=== PATIENT | female | born 1985 | race Caucasian/White ===

== ENCOUNTER 2018-03-06 22:30 | Emergency (ER) | payer SELFPAY ==
[2018-03-06 23:05] LABS: Urine Blood NEGATIVE (NEG); Urine Glucose NEGATIVE (NEG); Urine Protein NEGATIVE (NEG)
[2018-03-06 23:54] LABS: Absolute Lymphocytes (CBC) 2.2 K/uL (0.7-4.9); Absolute Monocytes 0.6 K/uL (0.1-1.3); Absolute Neutrophil 6.6 K/uL (1.8-8.0); Basophils % 0.7 % (0-1.3); Eosinophils % 5.7 % (0-4.4); Hematocrit 40.6 % (36.0-45.0); MCH 28.2 pg (27.0-35.0); MCV 82.9 fL (80-100); MPV 8.1 fL (7.6-11.3); Monocytes % 6.1 % (3.3-12.3)
[2018-03-06 23:58] LABS: BUN Blood Urea Nitrogen 13 mg/dL (7-18); Bicarbonate 30 mmol/L (21-32); Glucose Level 96 mg/dL (74-106); Potassium 3.8 mmol/L (3.5-5.1); Sodium Level 142 mmol/L (136-145)
[2018-03-07] MEDS ORDERED: KETOROLAC 30 MG/ML INJ ONE (00:03)
--- NOTE | 2018-03-07 01:12 | ER ---
Nurse's Notes [facility] Name: Alma Rosa Villarreal Age: 32 yrs Sex: Female : 1985 Arrival Date: 03/06/2018 Time: 22:31 Bed 8 Private MD: Diagnosis: Abdominal and pelvic pain Presentation: 03/06 22:32 Presenting complaint: EMS states: Patient complaining of lower abdominal pain that woke ea her out of her sleep thirty minutes ago. Patient reported she took a test last week and it was positive. Transition of care: patient was not received from another setting of care. Onset of symptoms was March 06, 2018. Risk Assessment: Do you want to hurt yourself or someone else? Patient reports no desire to harm self or others. Initial Sepsis Screen: Does the patient meet any 2 criteria? No. Patient's initial sepsis screen is negative. Does the patient have a suspected source of infection? No. Patient's initial sepsis screen is negative. Care prior to arrival: None. 22:32 Method Of Arrival: EMS: [facility] ea 22:32 Acuity: YAZ 3 ea Triage Assessment: 22:37 General: Appears uncomfortable, Behavior is calm, cooperative, appropriate for age. ea General: pt reports positive test about a week ago. Pain: Complains of pain in suprapubic area, right lower quadrant and left lower quadrant Pain currently is 8 out of 10 on a pain scale. Quality of pain is described as crampy, Pain began 30 min ago. Is intermittent. EENT: No signs and/or symptoms were reported regarding the EENT system. Neuro: Level of Consciousness is awake, alert, obeys commands, Oriented to person, place, time, situation. Cardiovascular: Patient's skin is warm and dry. Respiratory: Airway is patent Respiratory effort is even, unlabored, Respiratory pattern is regular, symmetrical. GI: Abdomen is non-distended, Bowel sounds present X 4 quads. Reports lower abdominal pain. : Reports cramping, right and left lower quadrant. Derm: Skin is pink, warm \T\ dry. Musculoskeletal: Circulation, motion, and sensation intact. PROGRAM DIR: 22:32 5, Full Term 3, Premature 0, 1, Living 3, LMP 01/2018 ea Historical: - Allergies: 22:37 Codeine; ea 22:37 Morphine; ea - Home Meds: 22:37 None [Active]; ea - PMHx: 22:37 Ovarian cyst; ea - Immunization history:: Adult Immunizations up to date. - Social history:: Smoking status: Patient uses tobacco products, smokes one-half pack cigarettes per day. - Ebola Screening: : No symptoms or risks identified at this time. Screenin:43 Abuse screen: Denies threats or abuse. Nutritional screening: No deficits noted. ea Tuberculosis screening: No symptoms or risk factors identified. Fall Risk None identified. Assessment: 22:44 Reassessment: see triage assessment. ea 23:50 Reassessment: Patient and/or family updated on plan of care and expected duration. Pain ea level reassessed. Patient is alert, oriented x 3, equal unlabored respirations, skin warm/dry/pink. 03/07 00:20 Reassessment: Patient and/or family updated on plan of care and expected duration. Pain ea level reassessed. Patient is alert, oriented x 3, equal unlabored respirations, skin warm/dry/pink. pt taken to CT. 01:00 Reassessment: Patient and/or family updated on plan of care and expected duration. Pain ea level reassessed. Patient is alert, oriented x 3, equal unlabored respirations, skin warm/dry/pink. 01:45 Reassessment: Patient and/or family updated on plan of care and expected duration. Pain ea level reassessed. Patient is alert, oriented x 3, equal unlabored respirations, skin warm/dry/pink. Discharge instruction given to patient, verbalized the understanding of instruction. Patient denies pain at this time. Patient states feeling better. Patient states symptoms have improved. Vital Signs: 03/06 22:32 BP 124 / 81; Pulse 68; Resp 18; Temp 97.7; Pulse Ox 98% on R/A; Weight 90.72 kg; Height ea 5 ft. 7 in. (170.18 cm); Pain 8/10; 23:45 BP 105 / 84; Pulse 68; Resp 18; Pulse Ox 99% on R/A; ea 03/07 00:42 BP 118 / 73; Pulse 60; Resp 18; Pulse Ox 99% on R/A; ea 01:06 BP 113 / 71; Pulse 63; Resp 18; Pulse Ox 97% on R/A; ea 09/06 22:32 Body Mass Index 31.32 (90.72 kg, 170.18 cm) ea ED Course: 03/06 22:31 Patient arrived in ED. ds1 22:32 Margaret Del Cid, RN is Primary Nurse. ea 22:32 Patient has correct armband on for positive identification. Placed in gown. Bed in low ea position. Call light in reach. 22:32 Arm band placed on right wrist. Patient placed in an exam room, on a stretcher, on ea pulse oximetry. 22:34 Triage completed. ea 22:36 Davon Alvares PA is PHCP. jr8 22:36 Aayush Duff MD is Attending Physician. jr8 23:30 Inserted saline lock: 20 gauge in right antecubital area, using aseptic technique. ea Blood collected. 03/07 00:07 Patient moved to [place] via wheelchair. kw1 00:19 CT Abd/Pelvis - W/Contrast In Process Unspecified. EDMS 00:21 CT completed. Patient tolerated procedure well. Patient moved back from AK. kw1 01:45 No provider procedures requiring assistance completed. IV discontinued, intact, ea bleeding controlled, No redness/swelling at site. Pressure dressing applied. Administered Medications: 00:00 Drug: TORadol 30 mg Route: IVP; Site: right antecubital; ea Outcome: 01:12 Discharge ordered by . jr8 01:45 Discharged to home via wheelchair, with family. ea 01:45 Condition: improved 01:45 Discharge instructions given to patient, Instructed on discharge instructions, follow up and referral plans. medication usage, Demonstrated understanding of instructions, follow-up care, medications, Prescriptions given X 2. 01:56 Patient left the ED. ea Signatures: Dispatcher [employer] EDOK Ellen Staples ds1 Davon Alvares PA PA jr8 Margaret Del Cid, RN RN Carey Lau kw1
--- NOTE | 2018-03-07 01:12 | EDPHYS ---
Physician Documentation [facility] Name: Alma Rosa Villarreal Age: 32 yrs Sex: Female : 1985 Arrival Date: 03/06/2018 Time: 22:31 Bed 8 Private MD: ED Physician Aayush Duff HPI: 03/06 23:33 This 32 yrs old Female presents to ER via EMS with complaints of Abdominal jr8 Pain. 23:33 The patient presents with abdominal pain in the lower abdomen. Onset: The jr8 symptoms/episode began/occurred acutely, today. The symptoms do not radiate. Associated signs and symptoms: Pertinent positives: nausea. The symptoms are described as sharp. Modifying factors: The symptoms are alleviated by nothing, the symptoms are aggravated by movement. Severity of pain: At its worst the pain was moderate in the emergency department the pain is unchanged. The patient has not experienced similar symptoms in the past. The patient has not recently seen a physician. EDUCATIONAL TECHNOLOGY COORDINATOR: 22:32 5, Full Term 3, Premature 0, 1, Living 3, LMP 01/2018 ea Historical: - Allergies: 22:37 Codeine; ea 22:37 Morphine; ea - Home Meds: 22:37 None [Active]; ea - PMHx: 22:37 Ovarian cyst; ea - Immunization history:: Adult Immunizations up to date. - Social history:: Smoking status: Patient uses tobacco products, smokes one-half pack cigarettes per day. - Ebola Screening: : No symptoms or risks identified at this time. ROS: 23:33 Eyes: Negative for injury, pain, redness, and discharge, ENT: Negative for injury, jr8 pain, and discharge, Neck: Negative for injury, pain, and swelling, Cardiovascular: Negative for chest pain, palpitations, and edema, Respiratory: Negative for shortness of breath, cough, wheezing, and pleuritic chest pain, Back: Negative for injury and pain, MS/Extremity: Negative for injury and deformity, Skin: Negative for injury, rash, and discoloration, Neuro: Negative for headache, weakness, numbness, tingling, and seizure. 23:33 Abdomen/GI: Positive for abdominal pain, nausea, Negative for diarrhea, constipation, abdominal cramps, abdominal distension, anorexia, dysphagia, hematemesis, black/tarry stool, rectal pain, rectal bleeding, bowel incontinence, flatulence. Exam: 23:33 Eyes: Pupils equal round and reactive to light, extra-ocular motions intact. Lids and jr8 lashes normal. Conjunctiva and sclera are non-icteric and not injected. Cornea within normal limits. Periorbital areas with no swelling, redness, or edema. ENT: Nares patent. No nasal discharge, no septal abnormalities noted. Tympanic membranes are normal and external auditory canals are clear. Oropharynx with no redness, swelling, or masses, exudates, or evidence of obstruction, uvula midline. Mucous membranes moist. Neck: Trachea midline, no thyromegaly or masses palpated, and no cervical lymphadenopathy. Supple, full range of motion without nuchal rigidity, or vertebral point tenderness. No Meningismus. Cardiovascular: Regular rate and rhythm with a normal S1 and S2. No gallops, murmurs, or rubs. Normal PMI, no JVD. No pulse deficits. Respiratory: Lungs have equal breath sounds bilaterally, clear to auscultation and percussion. No rales, rhonchi or wheezes noted. No increased work of breathing, no retractions or nasal flaring. Back: No spinal tenderness. No costovertebral tenderness. Full range of motion. Skin: Warm, dry with normal turgor. Normal color with no rashes, no lesions, and no evidence of cellulitis. MS/ Extremity: Pulses equal, no cyanosis. Neurovascular intact. Full, normal range of motion. Neuro: Awake and alert, GCS 15, oriented to person, place, time, and situation. Cranial nerves II-XII grossly intact. Motor strength 5/5 in all extremities. Sensory grossly intact. Cerebellar exam normal. Normal gait. 23:33 Abdomen/GI: Inspection: obese Bowel sounds: active, all quadrants, Palpation: soft, in all quadrants, moderate abdominal tenderness, in the right lower quadrant and left lower quadrant, mass, is not appreciated, rebound tenderness, is not appreciated, voluntary guarding, is not appreciated, involuntary guarding, is not appreciated, no appreciated organomegaly, Indicators: McBurney's point is not tender, Salcedo's sign is negative, Rovsing's sign is negative, Liver: no appreciated palpable abnormalities, tenderness, is not appreciated. Vital Signs: 22:32 BP 124 / 81; Pulse 68; Resp 18; Temp 97.7; Pulse Ox 98% on R/A; Weight 90.72 kg; Height ea 5 ft. 7 in. (170.18 cm); Pain 8/10; 23:45 BP 105 / 84; Pulse 68; Resp 18; Pulse Ox 99% on R/A; ea 03/07 00:42 BP 118 / 73; Pulse 60; Resp 18; Pulse Ox 99% on R/A; ea 01:06 BP 113 / 71; Pulse 63; Resp 18; Pulse Ox 97% on R/A; ea 03/06 22:32 Body Mass Index 31.32 (90.72 kg, 170.18 cm) ea MDM: 03/06 22:36 Patient medically screened. 8 03/07 01:10 Data reviewed: vital signs, nurses notes, lab test result(s), radiologic studies, CT jr8 scan, and as a result, I will discharge patient. Data interpreted: Pulse oximetry: on room air is 97 %. Interpretation: normal. Counseling: I had a detailed discussion with the patient and/or guardian regarding: the historical points, exam findings, and any diagnostic results supporting the discharge/admit diagnosis, lab results, radiology results, the need for outpatient follow up, a family practitioner, to return to the emergency department if symptoms worsen or persist or if there are any questions or concerns that arise at home. Response to treatment: the patient's symptoms have markedly improved after treatment. 03/06 22:44 Order name: Urine Dipstick--Ancillary (enter results); Complete Time: 23:16 [facility] 03/06 22:44 Order name: Urine --Ancillary (enter results); Complete Time: 23:16 [facility] 03/06 23:16 Order name: Basic Metabolic Panel; Complete Time: 00:08 03/06 23:16 Order name: CBC with Diff; Complete Time: 00:08 [facility] 03/06 23:16 Order name: Creatinine for Radiology; Complete Time: 00:08 03/06 23:16 Order name: CT Abd/Pelvis - W/Contrast [facility] 03/06 23:16 Order name: IV Saline Lock; Complete Time: 23:41 8 03/06 23:16 Order name: Labs collected and sent; Complete Time: 23:41 [facility] 03/06 23:16 Order name: Urine Dipstick-Ancillary (obtain specimen); Complete Time: 23:41 [facility] Administered Medications: 00:00 Drug: TORadol 30 mg Route: IVP; Site: right antecubital; ea Disposition: 02:14 Co-signature as Attending Physician, Aayush Duff MD I agree with the assessment and ps1 plan of care. Disposition: 03/07/18 01:12 Discharged to Home. Impression: Abdominal and pelvic pain. - Condition is Stable. - Discharge Instructions: Abdominal Pain, Adult. - Prescriptions for Ibuprofen 800 mg Oral Tablet - take 1 tablet by ORAL route every 12 hours As needed take with food; 20 tablet. Zofran 4 mg Oral Tablet - take 1 tablet by ORAL route every 12 hours As needed; 20 tablet. - Medication Reconciliation Form, Thank You Letter, Antibiotic Education, Prescription Opioid Use form. - Follow up: Private Physician; When: 2 - 3 days; Reason: Recheck today's complaints, Continuance of care, Re-evaluation by your physician. - Problem is new. - Symptoms have improved. Signatures: Dispatcher [employer] EDMS aDvon Alvares PA PA jr8 Margaret Del Cid RN RN ea Singer, Phillip, MD MD ps1 Corrections: (The following items were deleted from the chart) 01:56 01:12 03/07/2018 01:12 Discharged to Home. Impression: Abdominal and pelvic pain. ea Condition is Stable. Forms are Medication Reconciliation Form, Thank You Letter, Antibiotic Education, Prescription Opioid Use. Follow up: Private Physician; When: 2 - 3 days; Reason: Recheck today's complaints, Continuance of care, Re-evaluation by your physician. Problem is new. Symptoms have improved. jr8
--- NOTE | 2018-03-07 08:30 | RAD REPORT ---
EXAM DESCRIPTION: CT - Abdomen Pelvis W Contrast - 03/07/2018 12:18 am CLINICAL HISTORY: Abdominal pain/lower abdominal pain COMPARISON: none. TECHNIQUE: Computed axial tomography of the abdomen pelvis was obtained. 100 cc Isovue-300 was admin istered intravenously. Oral contrast was not requested which limits evaluation of bowel. A preliminar y report was generated by [employer] and reviewed prior to this dictation All CT scans are performed using dose optimization technique as appropriate and may include automated exposure control or mA/KV adjustment according to patient size. FINDINGS: The liver has diminished attenuation cyst with fatty infiltration. The left lobe is promin ent. Spleen, pancreas, adrenal and kidneys appear unremarkable. There is no evidence of diverticulitis. The appendix is normal. The gallbladder has been removed. An adnexal mass is not seen. Minimal amount of free fluid may be physiologic. IMPRESSION: No acute abnormality is displayed.
== END 2018-03-07 01:56 | disposition home or self-care (01) ==
LOC: ER 22:30
DX: R10.2 Pelvic and perineal pain (principal); F17.210 Nicotine dependence, cigarettes, uncomplicated; Z88.5 Allergy status to narcotic agent
CPT/HCPCS: 36415; 74177; 80048; 81003; 81025; 85025; 96374; 99285; Q9967